=== PATIENT | female | born 1980 | race American Indian/Alaskan Native ===

== ENCOUNTER 2017-02-12 19:28 | Emergency (ER) | payer MEDICAID ==
[2017-02-12 19:29] VITALS: BMI 30.8
[2017-02-12 19:35] VITALS: PULSE 90; RESP 18; TEMP 98.6; O2SAT 100
[2017-02-12 20:23] VITALS: BP 146/88
--- NOTE | 2017-02-12 20:24 | ED PDOC ---
Arrival/HPI <Feliciano Leonard - Last Filed: 02/12/17 20:42> - General Historian: Patient EM Caveat: Acuity of Condition - History of Present Illness Front/Back of Body, Lg (Color): 1 - headache Time/Duration: 4-6 hours Symptom Onset: Gradual Symptom Course: Improving Quality: Aching Severity Level: 8 Activities at Onset: Light Context: Sitting <FIDEL SILVEIRA - Last Filed: 02/12/17 23:32> - General Chief Complaint: High Blood Pressure Time Seen by Provider: 02/12/17 19:29 - History of Present Illness Narrative History of Present Illness (Text): 36F with PMH HTN (dx in 2016), presents for high blood pressure x past 5 days. Pt states that her home BP has been high, SBP 165-200, pt also c/o dizziness, generalized weakness and an occipital headache. Denies changes in vision, floaters, nausea, vomiting, syncope, palpitations, urinary symptoms, diarrhea, brbpr, melena. Within the past year, pt has been switched to three different bp medications due to side effects (headache, cough). Pt also states that she "does not believe in taking pills." No family hx of heart disease, stroke. 02/12/17 20:11 (FIDEL SILVEIRA) Associated Symptoms (Text): Has associated dizziness, generalized weakness and headache. 02/12/17 20:25 (FIDEL SILVEIRA) Past Medical History - Provider Review Nursing Documentation Reviewed: Yes - Past History Past History: No Previous - Infectious Disease Hx of Infectious Diseases: None - Tetanus Immunization Tetanus Immunization: Up to Date - Past Medical History Past Medical History: No Previous - Cardiac Hx Cardiac Disorders: Yes Hx Hypertension: Yes - Pulmonary Hx Respiratory Disorders: No - Neurological Hx Neurological Disorder: No - HEENT Hx HEENT Disorder: No - Renal Hx Pyelonephritis: No - Endocrine/Metabolic Hx Diabetes Mellitus Type 2: No - Hematological/Oncological Hx Hemophilia: No - Integumentary Hx Squamous Cell Carcinoma: No - Musculoskeletal/Rheumatological Hx Back Pain: No - Gastrointestinal Hx Crohn's Disease: No - Psychiatric Hx Psychophysiologic Disorder: No Hx Depression: No Hx Emotional Abuse: No Hx Physical Abuse: No Hx Substance Use: No - Surgical History Hx Tubal Ligation: Yes - Anesthesia Hx Anesthesia: Yes Hx Anesthesia Reactions: No Hx Malignant Hyperthermia: No - Suicidal Assessment Feels Threatened In Home Enviroment: No <FIDEL SILVIERA - Last Filed: 02/12/17 23:32> Family/Social History - Physician Review Nursing Documentation Reviewed: Yes Family/Social History: No Known Family HX Smoking Status: Never Smoked Hx Alcohol Use: No Hx Substance Use: No Hx Substance Use Treatment: No <FIDEL SILVEIRA - Last Filed: 02/12/17 23:32> Allergies/Home Meds <Feliciano Leonard - Last Filed: 02/12/17 20:42> <FIDEL SILVEIRA - Last Filed: 02/12/17 23:32> Allergies/Adverse Reactions: Allergies No Known Allergies Allergy (Verified 02/12/17 19:32) Review of Systems - Physician Review All systems were reviewed & negative as marked: Yes - Review of Systems Constitutional: absent: Fatigue, Fevers Eyes: absent: Vision Changes, Eye Pain ENT: absent: Hearing Changes, Tinnitus Respiratory: absent: SOB, Cough Cardiovascular: absent: Chest Pain, Palpitations, Orthopnea, Syncope Gastrointestinal: absent: Abdominal Pain, Diarrhea, Nausea, Vomiting Genitourinary Female: absent: Dysuria, Frequency, Hematuria Musculoskeletal: absent: Back Pain Neurological: Headache, Dizziness. absent: Focal Weakness, Gait Changes, Speech Changes, Facial Droop Psychiatric: Anxiety <FIDEL SILVEIRA - Last Filed: 02/12/17 23:32> Physical Exam Vital Signs Reviewed: Yes Temperature: Afebrile Blood Pressure: Hypertensive Pulse: Regular Respiratory Rate: Normal Appearance: Positive for: Well-Appearing Pain Distress: Mild Mental Status: Positive for: Alert and Oriented X 3 - Systems Exam Head: Present: Atraumatic, Normocephalic Pupils: Present: PERRL Extroacular Muscles: Present: EOMI Conjunctiva: Present: Normal Mouth: Present: Moist Mucous Membranes Pharnyx: Present: Normal. No: ERYTHEMA Neck: Present: Normal Range of Motion Respiratory/Chest: Present: Clear to Auscultation, Good Air Exchange Cardiovascular: Present: Regular Rate and Rhythm, Normal S1, S2. No: Murmurs, Tachycardic Abdomen: Present: Normal Bowel Sounds. No: Tenderness, Distention Back: Present: Normal Inspection. No: CVA Tenderness Upper Extremity: Present: Normal Inspection. No: Edema Lower Extremity: Present: Normal Inspection, NORMAL PULSES. No: CALF TENDERNESS Neurological: Present: GCS=15, CN II-XII Intact, Speech Normal Skin: Present: Warm, Dry Psychiatric: Present: Alert, Oriented x 3 <FIDEL SILVEIRA - Last Filed: 02/12/17 23:32> Vital Signs Temp Pulse Resp BP Pulse Ox 02/12/17 20:20 146/88 02/12/17 19:33 98.6 F 90 18 170/102 H 100 Medical Decision Making <Feliciano Leonard - Last Filed: 02/12/17 20:42> <FIDEL SILVEIRA - Last Filed: 02/12/17 23:32> ED Course and Treatment: 02/12/17 20:43 Herson Huizar is a 36 year old female whose presents to the emergency department with labial hypertension, complaining of elevated blood pressure for the past couple of days with associated headache and occasional dizziness. In agreement with resident note, which includes further HPI details. Patient was seen and evaluated with resident, came up with plan and treatment together. (Feliciano Leonard) 36 years old female presents for high blood pressure: - Clonidine 0.2 mg PO - CBC, CMP - Ct head - Reassess 02/12/17 20:02 02/12/17 20:29 Repeat BP 146/88, prior to Clonidine. Will hold off bp med. Pt verbalizes feeling better, less dizzy and improvement of her headache. 02/12/17 22:51 CT head shows no acute changes. Pt to follow up with [facility] on Saturday, 02/18. Discharge pt on Norvasc 5 mg PO daily. (FIDEL SILVEIRA) - Lab Interpretations Lab Results: 02/12/17 20:15 02/12/17 20:15 Lab Results 02/12/17 20:50: Urine Color Yellow, Urine Appearance Sl cloudy, Urine pH 6.0, Ur Specific [place] 1.020, Urine Protein Negative, Urine Glucose (UA) Negative, Urine Ketones Negative, Urine Blood Small H, Urine Nitrate Negative, Urine Bilirubin Negative, Urine Urobilinogen 0.2, Ur Leukocyte Esterase Small H, Urine RBC 1 - 3, Urine WBC 1 - 3, Ur Epithelial Cells 1 - 3, Urine Bacteria Mod , Urine HCG, Qual Negative 02/12/17 20:15: Sodium 140, Potassium 3.9, Chloride 105, Carbon Dioxide 27, Anion Gap 12, BUN 13, Creatinine 0.9, Est GFR ( Amer) > 60, Est GFR (Non- Af Amer) > 60, Random Glucose 91, Calcium 9.9, Total Bilirubin 0.7, AST 20, ALT 38, Alkaline Phosphatase 59, Total Protein 8.0, Albumin 4.6, Globulin 3.4, Albumin/Globulin Ratio 1.4 02/12/17 20:15: WBC 8.6, RBC 4.16, Hgb 13.1, Hct 36.4, MCV 87.5, MCH 31.5, MCHC 36.0, RDW 13.2, Plt Count 219, MPV 9.7, Gran % 61.4, Lymph % (Auto) 30.3, [place] % (Auto) 7.2 H, Eos % (Auto) 1.0 L, Baso % (Auto) 0.1, Gran # 5.29, Lymph # 2.6 , [place] # 0.6, Eos # 0.1, Baso # 0.01 - RAD Interpretation Radiology Orders: 02/12/17 20:40 HEAD W/O CONTRAST [CT] Stat - Medication Orders Current Medication Orders: Discontinued Medications Clonidine HCl (Catapres) 0.2 mg PO STAT STA Stop: 02/12/17 20:10 Last Admin: 02/12/17 20:21 Dose: Not Given - PA / SPEED WINDER / Resident Statement GREG has reviewed & agrees with the documentation as recorded. / has examined the patient and agrees with the treatment plan. <Feliciano Leonard - Last Filed: 02/12/17 20:42> Disposition/Present on Arrival <Feliciano Leonard - Last Filed: 02/12/17 20:42> - Present on Arrival Any Indicators Present on Arrival: No History of DVT/PE: No History of Uncontrolled Diabetes: No Urinary Catheter: No History of Decub. Ulcer: No History Surgical Site Infection Following: None - Disposition Have Diagnosis and Disposition been Completed?: Yes Disposition Time: 23:10 Patient Plan: Discharge <FIDEL SILVEIRA - Last Filed: 02/12/17 23:32> - Disposition Diagnosis: High blood pressure Disposition: HOME/ ROUTINE Patient Problems: Current Active Problems Problem Status Onset High blood pressure Acute Condition: GOOD Discharge Instructions (ExitCare): Hypertension (ED) Prescriptions: amLODIPine [Norvasc] 5 mg PO DAILY #21 tab Referrals: Lenin Doll [Primary Care Provider] - Follow up with primary Forms: [email or web address] ([place])
[2017-02-12 20:27] LABS: BASO # 0.01 K/mm3 (0.0-2.0); BASO % 0.1 % (0.0-3.0); EOS # 0.1 (0.0-0.7); GRAN # 5.29 (1.4-6.5); GRAN % 61.4 % (50.0-68.0); HEMATOCRIT 36.4 % (36.0-48.0); LYMPH # 2.6 (1.2-3.4); LYMPH % 30.3 % (22.0-35.0); MEAN CELL VOLUME 87.5 fl (80.0-105.0); MEAN CORPUSCULAR HEMOGLOBIN 31.5 pg (25.0-35.0); MEAN PLATELET VOLUME 9.7 fl (7.0-11.0); MONO # 0.6 (0.1-0.6); MONO % 7.2 % (1.0-6.0); RED CELL DISTRIBUTION WIDTH 13.2 % (11.5-14.5); WHITE BLOOD COUNT 8.6 10^3/ul (4.5-11.0)
[2017-02-12 20:35] LABS: ALB/GLOB RATIO 1.4 (1.1-1.8); ALKALINE PHOSPHATASE 59 U/L (38-126); ALT/SGPT 38 U/L (7-56); AST/SGOT 20 U/L (14-36); BILIRUBIN,TOTAL 0.7 mg/dL (0.2-1.3); BLOOD UREA NITROGEN 13 mg/dL (7-21); CALCIUM 9.9 mg/dL (8.4-10.5); CARBON DIOXIDE 27 mmol/L (21-33); CHLORIDE 105 mmol/L (98-107); GFR AFRICAN-AMERICAN > 60; GLUCOSE,RANDOM 91 mg/dL (70-110); POTASSIUM 3.9 mmol/L (3.6-5.0); SODIUM 140 mmol/L (132-148)
[2017-02-12 21:09] LABS: URINE BILIRUBIN NEGATIVE (NEGATIVE); URINE BLOOD SMALL (NEGATIVE); URINE GLUCOSE (UA) NEGATIVE (NEGATIVE); URINE KETONE NEGATIVE (NEGATIVE); URINE LEUKOCYTE ESTERASE SMALL Leu/uL (NEGATIVE); URINE PROTEIN NEGATIVE mg/dL (<30 mg/dL); URINE UROBILINOGEN 0.2 E.U./dL (<1 E.U./dL)
[2017-02-12 21:13] LABS: URINE COLOR YELLOW (YELLOW)
[2017-02-12 21:14] LABS: URINE APPEARANCE SL CLOUDY (CLEAR)
[2017-02-12 21:22] LABS: URINE BACTERIA MOD (NEG)
--- NOTE | 2017-02-12 22:50 | CT ---
EXAM: CT Head Without Intravenous Contrast CLINICAL HISTORY: 36 years old, female; Pain; Headache; Headache not specified; Additional info: Occipital headache, dizzy TECHNIQUE: Axial computed tomography images of the head/brain without intravenous contrast. All CT scans at this facility use one or more dose reduction techniques, viz.: automated exposure control; ma/kV adjustment per patient size (including targeted exams where dose is matched to indication; i.e. head); or iterative reconstruction technique. COMPARISON: No relevant prior studies available. FINDINGS: Brain: No intracranial hemorrhage. No mass. No definite edema. Ventricles: No hydrocephalus. Bones/joints: No acute fracture. Soft tissues: Unremarkable. Sinuses: No acute sinusitis. Mastoid air cells: No mastoid effusion. Orbits: Unremarkable as visualized. IMPRESSION: 1. No acute intracranial abnormality.
== END 2017-02-12 23:04 | disposition home or self-care (01) ==
LOC: ED 19:28
DX: I10 Essential (primary) hypertension (principal); Z98.51 Tubal ligation status

== ENCOUNTER 2017-07-21 16:34 | Emergency (ER) | payer MEDICAID ==
[2017-07-21 16:52] VITALS: BP 142/84; PULSE 84; RESP 18; TEMP 98.1; O2SAT 100; BMI 31.1
--- NOTE | 2017-07-21 17:03 | ED PDOC ---
Arrival/HPI - General Chief Complaint: ENT Problem Time Seen by Provider: 07/21/17 16:50 Historian: Patient - History of Present Illness Narrative History of Present Illness (Text): 07/21/17 17:00 This 36 yo female who denies pmh, presents to this ED c/o sore throat x 2 days. 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 Patient denies COWART, sob, cp, abdominal pain, skin rash, urinary symptoms, photophobia, neck stiffness, or abnormal gait. Time/Duration: Other (2 days) Context: Home Past Medical History - Provider Review Nursing Documentation Reviewed: Yes - Past History Past History: No Previous - Infectious Disease Hx of Infectious Diseases: None - Tetanus Immunization Tetanus Immunization: Up to Date - Past Medical History Past Medical History: No Previous - Cardiac Hx Cardiac Disorders: Yes Hx Hypertension: Yes - Pulmonary Hx Respiratory Disorders: No - Neurological Hx Neurological Disorder: No - HEENT Hx HEENT Disorder: No - Renal Hx Pyelonephritis: No - Endocrine/Metabolic Hx Diabetes Mellitus Type 2: No - Hematological/Oncological Hx Hemophilia: No - Integumentary Hx Squamous Cell Carcinoma: No - Musculoskeletal/Rheumatological Hx Back Pain: No - Gastrointestinal Hx Crohn's Disease: No - Psychiatric Hx Psychophysiologic Disorder: No Hx Depression: No Hx Emotional Abuse: No Hx Physical Abuse: No Hx Substance Use: No - Surgical History Hx Tubal Ligation: Yes - Anesthesia Hx Anesthesia: Yes Hx Anesthesia Reactions: No Hx Malignant Hyperthermia: No - Suicidal Assessment Feels Threatened In Home Enviroment: No Family/Social History - Physician Review Nursing Documentation Reviewed: Yes Family/Social History: Other (noncontributory) Smoking Status: Never Smoked Hx Alcohol Use: No Hx Substance Use: No Hx Substance Use Treatment: No Allergies/Home Meds Allergies/Adverse Reactions: Allergies No Known Allergies Allergy (Verified 07/21/17 16:50) Review of Systems - Review of Systems Constitutional: Normal. absent: Fatigue, Weight Change, Fevers Eyes: Normal ENT: Sore Throat. absent: Hearing Changes, Tinnitus, TMJ Pain, Voice Changes, Rhinorrhea, Epistaxis, Sinus Congestion Respiratory: Normal. absent: SOB, Cough Cardiovascular: Normal. absent: Chest Pain, Palpitations Gastrointestinal: Normal. absent: Abdominal Pain, Nausea, Vomiting Genitourinary Female: Normal. absent: Dysuria, Frequency, Hematuria Musculoskeletal: Normal. absent: Back Pain, Neck Pain Skin: Normal. absent: Rash Neurological: Normal. absent: Headache, Dizziness, Focal Weakness, Gait Changes , Speech Changes, Facial Droop, Disequilibrium, Seizure Endocrine: Normal Hemo/Lymphatic: Normal Psychiatric: Normal Physical Exam Vital Signs Temp Pulse Resp BP Pulse Ox 07/21/17 16:51 98.1 F 84 18 142/84 100 Temperature: Afebrile Blood Pressure: Normal Pulse: Regular Respiratory Rate: Normal Appearance: Positive for: Well-Appearing, Non-Toxic, Comfortable Pain Distress: None Mental Status: Positive for: Alert and Oriented X 3 - Systems Exam Head: Present: Atraumatic, Normocephalic Pupils: Present: PERRL Extroacular Muscles: Present: EOMI Conjunctiva: Present: Normal Ears: Present: Normal, NORMAL TM, Normal Canal. No: Erythema, TM Bulging, Fluid , TM Perf Mouth: Present: Moist Mucous Membranes, Normal Lips, Normal Tounge. No: Drooling Pharnyx: Present: ERYTHEMA. No: EXUDATE, TONSILS ENLARGED, Peritonsilar Swelling, Uvular Deviation, Muffled/Hoarse Voice, Strider, Soft Palate/Uvular Edema Nose (External): Present: Atraumatic Nose (Internal): Present: Normal Inspection Neck: Present: Normal Range of Motion, Trachea Midline. No: Meningeal Signs, MIDLINE TENDERNESS, Paraspinal Tenderness, Lymphadenopathy Respiratory/Chest: Present: Good Air Exchange. No: Clear to Auscultation, Respiratory Distress, Accessory Muscle Use, Wheezes Cardiovascular: Present: Regular Rate and Rhythm, Normal S1, S2. No: Murmurs Upper Extremity: Present: Normal Inspection, Normal ROM Lower Extremity: Present: Normal Inspection, Normal ROM Neurological: Present: GCS=15, CN II-XII Intact, Speech Normal, Motor Func Grossly Intact, Normal Sensory Function, Normal Cerebellar Funct, Gait Normal Skin: Present: Warm, Dry, Normal Color. No: Rashes Psychiatric: Present: Alert, Oriented x 3, Normal Insight, Normal Concentration Medical Decision Making ED Course and Treatment: 07/21/17 17:04 Patient feels better. Re-evaluation Time: 17:05 Reassessment Condition: Re-examined, Improved Disposition/Present on Arrival - Present on Arrival Any Indicators Present on Arrival: No History of DVT/PE: No History of Uncontrolled Diabetes: No Urinary Catheter: No History of Decub. Ulcer: No History Surgical Site Infection Following: None - Disposition Have Diagnosis and Disposition been Completed?: Yes Diagnosis: Pharyngitis Disposition: HOME/ ROUTINE Disposition Time: 17:05 Patient Plan: Discharge Condition: GOOD Discharge Instructions (ExitCare): Sore Throat in Adults Additional Instructions: Call private doctor for follow up visit in 1-2 days. Take medication as instructed. return to emergency if symptoms worsen. Prescriptions: Amoxicillin [Amoxil 500 mg Cap] 500 mg PO TID #30 cap Ibuprofen [Motrin] 600 mg PO Q8 PRN #20 tab PRN Reason: Pain, Severe (8-10) Referrals: [facility] [Outside] - Follow up with primary [facility] [Outside] - Follow up with primary
== END 2017-07-21 17:40 | disposition home or self-care (01) ==
LOC: ED 16:34
DX: J02.9 Acute pharyngitis, unspecified (principal)

== ENCOUNTER 2017-12-31 19:39 | Emergency (ER) | payer MEDICAID ==
[2017-12-31 19:40] VITALS: BMI 31.1
[2017-12-31 20:08] VITALS: BP 138/88; PULSE 88; RESP 18; TEMP 98.2
--- NOTE | 2017-12-31 20:53 | ED PDOC ---
Arrival/HPI <Feliciano Leonard - Last Filed: 12/31/17 21:50> - General Historian: Patient - History of Present Illness Symptom Onset: Gradual Symptom Course: Unchanged Activities at Onset: Light Context: Home <Aleena Eaton PA-C - Last Filed: 12/31/17 23:28> - General Chief Complaint: Cough, Cold, Congestion Time Seen by Provider: 12/31/17 19:51 - History of Present Illness Narrative History of Present Illness (Text): 12/31/17 21:00 Herson Huizar is a 37 year old female who presents to the Emergency department complaining of nasal congestion, runny nose, and dry cough for 2-3 days. Patient states she has been taking Sudafed 30mg over the counter and began taking a 1 week course of Amoxicillin 500mg 3 times a day yesterday prescribed to her by her dentist last week as prophylaxis for a dental procedure on 2017. Patient reports feeling feverish, otherwise denies headache, chest pain, shortness of breath, or other complaints. (Aleena Eaton PA-C) Past Medical History - Provider Review Nursing Documentation Reviewed: Yes - Past History Past History: No Previous - Infectious Disease Hx of Infectious Diseases: None - Tetanus Immunization Tetanus Immunization: Up to Date - Past Medical History Past Medical History: No Previous - Cardiac Hx Cardiac Disorders: Yes Hx Hypertension: Yes - Pulmonary Hx Respiratory Disorders: No - Neurological Hx Neurological Disorder: No - HEENT Hx HEENT Disorder: No - Renal Hx Pyelonephritis: No - Endocrine/Metabolic Hx Diabetes Mellitus Type 2: No - Hematological/Oncological Hx Hemophilia: No - Integumentary Hx Squamous Cell Carcinoma: No - Musculoskeletal/Rheumatological Hx Back Pain: No - Gastrointestinal Hx Crohn's Disease: No - Psychiatric Hx Psychophysiologic Disorder: No Hx Depression: No Hx Emotional Abuse: No Hx Physical Abuse: No Hx Substance Use: No - Surgical History Hx Tubal Ligation: Yes - Anesthesia Hx Anesthesia: Yes Hx Anesthesia Reactions: No Hx Malignant Hyperthermia: No - Suicidal Assessment Feels Threatened In Home Enviroment: No <Aleena Eaton PA-C - Last Filed: 12/31/17 23:28> Family/Social History - Physician Review Nursing Documentation Reviewed: Yes Family/Social History: Unknown Family HX Smoking Status: Never Smoked Hx Alcohol Use: No Hx Substance Use: No Hx Substance Use Treatment: No <Aleena Eaton PA-C - Last Filed: 12/31/17 23:28> Allergies/Home Meds <Feliciano Leonard - Last Filed: 12/31/17 21:50> <Aleena Eaton PA-C - Last Filed: 12/31/17 23:28> Allergies/Adverse Reactions: Allergies No Known Allergies Allergy (Verified 07/21/17 16:50) Review of Systems - Physician Review All systems were reviewed & negative as marked: Yes - Review of Systems Constitutional: Fevers (+subjective fever) ENT: Sinus Congestion Respiratory: Cough <Aleena Eaton PA-C - Last Filed: 12/31/17 23:28> Physical Exam Vital Signs Reviewed: Yes Temperature: Afebrile Blood Pressure: Normal Pulse: Regular Respiratory Rate: Normal Appearance: Positive for: Well-Appearing, Non-Toxic, Comfortable Pain Distress: None Mental Status: Positive for: Alert and Oriented X 3 - Systems Exam Head: Present: Normocephalic, Tenderness (Tenderness to frontal maxillary sinus) Pupils: Present: PERRL Extroacular Muscles: Present: EOMI Conjunctiva: Present: Normal Ears: Present: Normal, NORMAL TM, Normal Canal Mouth: Present: Moist Mucous Membranes Pharnyx: Present: Normal. No: ERYTHEMA, EXUDATE, TONSILS ENLARGED, Peritonsilar Swelling, Uvular Deviation, Muffled/Hoarse Voice, Strider, Soft Palate/Uvular Edema Nose (External): Present: Atraumatic Nose (Internal): Present: Normal Inspection Neck: Present: Normal Range of Motion. No: Meningeal Signs, MIDLINE TENDERNESS , Paraspinal Tenderness Respiratory/Chest: Present: Clear to Auscultation, Good Air Exchange. No: Respiratory Distress, Accessory Muscle Use Cardiovascular: Present: Regular Rate and Rhythm, Normal S1, S2. No: Murmurs Abdomen: No: Tenderness, Distention, Peritoneal Signs Back: Present: Normal Inspection Upper Extremity: Present: Normal Inspection. No: Cyanosis, Edema Lower Extremity: Present: Normal Inspection. No: Edema Neurological: Present: GCS=15, CN II-XII Intact, Speech Normal Skin: Present: Warm, Dry, Normal Color. No: Rashes Psychiatric: Present: Alert, Oriented x 3, Normal Insight, Normal Concentration <Aleena Eaton PA-C - Last Filed: 12/31/17 23:28> Vital Signs Temp Pulse Resp BP Pulse Ox 12/31/17 20:07 98.2 F 88 18 138/88 100 Medical Decision Making <Feliciano Leonard - Last Filed: 12/31/17 21:50> <Aleena Eaton PA-C - Last Filed: 12/31/17 23:28> ED Course and Treatment: 12/31/17 21:00 Advised to continue taking [id number] Sudafed and amoxicillin as prescribed. Diagnosis of likely sinusitis discussed with the patient. Advised to follow up with primary care physician in 1-2 days without fail. Advised to take medication as prescribed. Return to the emergency room at any time for any new or worsening symptoms. Patient states she fully agrees with and understands discharge instructions. States that she agrees with the plan and disposition. Verbalized and repeated discharge instructions and plan. I have given the patient opportunity to ask any additional questions. (Aleena Eaton PA-C) - PA / ACID LEVELER / Resident Statement GREG has reviewed & agrees with the documentation as recorded. <Feliciano Leonard - Last Filed: 12/31/17 21:50> - PA / ACID LEVELER / Resident Statement / has reviewed & agrees with the documentation as recorded. - Scribe Statement The provider has reviewed the documentation as recorded by the Scribe <Aleena Eaton PA-C - Last Filed: 12/31/17 23:28> - Scribe Statement Rachele Price Provider Scribe Attestation: All medical record entries made by the Scribe were at my direction and personally dictated by me. I have reviewed the chart and agree that the record accurately reflects my personal performance of the history, physical exam, medical decision making, and the department course for this patient. I have also personally directed, reviewed, and agree with the discharge instructions and disposition. (Aleena Eaton PA-C) Disposition/Present on Arrival <Feliciano Leonard - Last Filed: 12/31/17 21:50> - Present on Arrival Any Indicators Present on Arrival: No History of DVT/PE: No History of Uncontrolled Diabetes: No Urinary Catheter: No History of Decub. Ulcer: No History Surgical Site Infection Following: None - Disposition Have Diagnosis and Disposition been Completed?: Yes Disposition Time: 21:00 Patient Plan: Discharge <Aleena Eaton PA-C - Last Filed: 12/31/17 23:28> - Disposition Diagnosis: Sinusitis Disposition: HOME/ ROUTINE Patient Problems: Current Active Problems Problem Status Onset Sinusitis Acute Condition: STABLE Discharge Instructions (ExitCare): Sinusitis, Adult (DC) Additional Instructions: Thank you for letting us take care of you today. You were treated for sinusitis. The emergency medical care you received today was directed at your acute symptoms. If you were prescribed any medication, please fill it and take as directed. It may take several days for your symptoms to resolve. Return to the Emergency Department if your symptoms worsen, do not improve, or if you have any other problems. Please contact your doctor in 2 days for re-evaluation and follow up / or call one of the physicians/clinics you have been referred to that are listed on the Patient Visit Information form that is included in your discharge packet. Bring any paperwork you were given at discharge with you along with any medications you are taking to your follow up visit. Our treatment cannot replace ongoing medical care by a primary care provider (PCP) outside of the emergency department. Thank you for allowing the [facility] team to be part of your care today. Prescriptions: Fluticasone Propionate [Flonase] 2 spr CANDICE BID #1 bottle Guaifenesin [Adult Tussin Chest Congestion] 200 mg PO Q4H PRN #200 ml PRN Reason: Cough Referrals: PCP,NO [Primary Care Provider] - Follow up with primary [facility] [Outside] - Follow up with primary Forms: [employer] ([place] Citizen), WORK NOTE
[2017-12-31 23:58] VITALS: O2SAT 99
== END 2017-12-31 23:55 | disposition home or self-care (01) ==
LOC: ED 19:39
DX: J32.9 Chronic sinusitis, unspecified (principal)